=== PATIENT | female | born 1990 | race Native Hawaiian/Other Pacific Islander ===

== ENCOUNTER 2019-05-03 07:32 | Emergency (ER) | payer BC, OTHER ==
[~2019-05-03] VITALS: Ht 162.6 cm; Wt 72.6 kg
--- NOTE | 2019-05-03 07:42 | NUR ---
Patient ambulated with stable gait. A/Ox4. Speech is clear, speaks in complete sentences. No acute neuro deficits noted. Patient came for c/o cp x 2 days. Respiratory even and unlabored, no cough no sob.
[2019-05-03 08:24] LABS: BASOPHILS # (AUTO) 0.1 K/uL (0.0-8.0); BASOPHILS % (AUTO) 0.6 % (0.0-2.0); EOSINOPHILS # (AUTO) 0.3 K/uL (0.0-0.7); EOSINOPHILS % (AUTO) 3.1 % (0.0-7.0); HEMATOCRIT 40.2 % (31.2-41.9); HEMOGLOBIN 13.2 g/dL (10.9-14.3); LYMPHOCYTES # (AUTO) 2.9 K/uL (20.0-40.0); LYMPHOCYTES % (AUTO) 35.2 % (20.5-51.5); MEAN CORPUSCULAR HGB CONC 33 g/dL (32.3-35.6); MEAN CORPUSCULAR VOLUME 88.5 fL (75.5-95.3); MONOCYTES # (AUTO) 0.4 K/uL (2.0-10.0); MONOCYTES % (AUTO) 4.9 % (0.0-11.0); NEUTROPHILS # (AUTO) 4.7 K/uL (1.8-8.9); NEUTROPHILS % (AUTO) 56.2 % (38.5-71.5); PLATELET COUNT (AUTO) 314 K/uL (179-408); RED BLOOD CELL COUNT(AUTO) 4.54 MIL/uL (3.63-4.92); WHITE BLOOD COUNT (AUTO) 8.3 K/uL (3.8-11.8)
[2019-05-03 08:32] LABS: CREATININE 0.6 mg/dL (0.6-1.3); POTASSIUM 3.4 mmol/L (3.5-5.1)
[2019-05-03 08:38] LABS: BILIRUBIN,DIRECT 0.1 mg/dL (0.0-0.2); BILIRUBIN,TOTAL 0.4 mg/dL (0.2-1.0); TOTAL PROTEIN, SERUM 7.8 g/dL (6.4-8.2)
[2019-05-03 08:47] LABS: *URINE HCG, QUAL NEGATIVE (NEGATIVE)
--- NOTE | 2019-05-03 09:56 | NUR ---
Patient discharged to home in stable conditon. Written and verbal after care instructions given. Patient verbalizes understanding of instructions. Patient ambulated with stable gait.
[2019-05-03 09:57] VITALS: BP 135/71
== END 2019-05-03 09:59 | disposition home or self-care (01) ==
LOC: ER 07:32
DX: R00.2 Palpitations (principal); I49.1 Atrial premature depolarization
CPT/HCPCS: 36415; 70030-TC; 71045; 84443; 84703; 85025; 93005; A4663

== ENCOUNTER 2019-10-17 13:08 | Emergency (ER) | payer BC, OTHER ==
[~2019-10-17] VITALS: Ht 162.6 cm; Wt 72.6 kg
--- NOTE | 2019-10-17 13:44 | NUR ---
Patient discharged to home in stable condition. Written and verbal after care instructions given. Patient verbalizes understanding of instructions. Stressed follow up or return to ER for worsening s/s.
== END 2019-10-17 13:45 | disposition home or self-care (01) ==
LOC: ER 13:08
DX: Z09 Encounter for follow-up examination after completed treatment for conditions other than malignant neoplasm (principal); Z86.19 Personal history of other infectious and parasitic diseases
CPT/HCPCS: 99283; U0003; A4663